=== PATIENT | male | born 2000 | race Caucasian/White ===

== ENCOUNTER 2023-07-22 16:06 | Emergency (ER) | payer SELFPAY ==
[2023-07-22] MEDS ORDERED: fentaNYL 50 mcg/mL 1 mL Vial ONE (16:26)
[2023-07-22] MEDS ORDERED: Lidocaine 1% (PF) 30 ML VIAL ONE (16:30)
[2023-07-22] MEDS ORDERED: PROPOFOL 20 ML ONE (16:54)
[2023-07-22] MEDS ORDERED: Ketorolac Tromethamine 30 MG/ML VIAL ONE (17:27)
== END 2023-07-22 17:56 | disposition home or self-care (01) ==
LOC: ERS 16:06
DX: S43.014A Anterior dislocation of right humerus, initial encounter (principal); I10 Essential (primary) hypertension; F17.290 Nicotine dependence, other tobacco product, uncomplicated; X50.0XXA Overexertion from strenuous movement or load, initial encounter
CPT/HCPCS: 23650; 96374; 96375; 99151; J1885; J2001; J2704; J3010